=== PATIENT | male | born 1960 | race Caucasian/White ===

== ENCOUNTER 2018-07-23 12:57 | Inpatient (IN) | payer OTHER, SELFPAY ==
[~2018-07-23 12:57] MED LIST: Iopamidol 370 76% 100 ML VIAL ONE
[2018-07-23 13:42] LABS: #Basophils 0.1 thou/uL (0.0-0.2); #Eosinphils 0.7 thou/uL (0.0-0.7); #Lymphocytes 3.3 thou/uL (1.20-3.40); %Basophils 0.6 % (0.0-1.0); %Eosinophils 4.8 % (0.0-10.0); %Lymphocytes 23.6 % (21.0-51.0); %Monocytes 7.2 % (0.0-10.0); %Neutrophils 63.8 % (42.0-75.0); Hemoglobin 14.4 g/dL (14.0-18.0); Mean Corpuscular HGB CONC 31.9 g/dL (32.0-36.0); Mean Corpuscular Hemoglobin 28.2 pg (27.0-31.0); Mean Corpuscular Volume 88.5 fL (78.0-98.0); Mean Platelet Volume 8.7 fL (7.4-10.4); Platelet Count 325 thou/uL (130-400); RBC Distribution Width 13.6 % (11.5-14.5); White Blood Cell (WBC) Count 14.1 thou/uL (4.8-10.8)
[2018-07-23 13:49] LABS: PTT 26.8 SEC (22.9-36.1)
[2018-07-23] MEDS ORDERED: Nitroglycerin 50 MG/250 ML BOT 250 ML ONE (13:54)
[2018-07-23] MEDS ORDERED: Heparin 10,000 UNITS/1 ML VIAL ONE (13:54)
[2018-07-23] MEDS ORDERED: Clopidogrel Bisulfate 300 MG TAB ONE (13:55)
[2018-07-23] MEDS ORDERED: Verapamil 5 MG/2 ML VIAL ONE (13:57)
[2018-07-23] MEDS ORDERED: Adenosine 6 MG/2 ML VIAL ONE (13:57)
[2018-07-23] MEDS ORDERED: Nitroglycerin 100MG/250ML BOT 250 ML ONE (13:58)
[2018-07-23 14:02] LABS: ALT (SGPT) 21 U/L (8-55); AST (SGOT) 20 U/L (5-34); Albumin 3.7 g/dL (3.5-5.0); Alkaline Phosphatase 57 U/L (40-150); Anion Gap 14 mmol/L (10-20); BUN (Urea Nitrogen) 10 mg/dL (8.9-20.6); Bilirubin, Total 0.5 mg/dL (0.2-1.2); Calc. Creatinine Clearance 0 mL/min (70-130); Calcium 8.7 mg/dL (7.8-10.44); Carbon Dioxide 22 mmol/L (22-29); Chloride 106 mmol/L (98-107); Estimated GFR-MDRD Greater than 90; Globulin 2.6 g/dL (2.4-3.5); Glucose 142 mg/dL (70-105); Potassium 4.4 mmol/L (3.5-5.1); Protein, Total 6.3 g/dL (6.0-8.3); Sodium 138 mmol/L (136-145)
--- NOTE | 2018-07-23 14:04 | RAD ---
RADIOGRAPH CHEST 1 VIEW: HISTORY: A 28-year-old male status post intubation. ST elevation myocardial infarction. FINDINGS: There are no air space densities, pulmonary edema, pneumothorax, or cardiomegaly. The lateral costop hrenic angles are sharp. Endotracheal tube distal tip overlies the midthoracic trachea. Enteric tub e descends along the left of midline vertically, then turns sharply horizontally in the left upper qu adrant. [place] is probably at the gastric cardia. Defibrillation paddle overlies the right should er. IMPRESSION: 1. No acute cardiopulmonary findings. 2. Endotracheal tube. 3. Esophagogastric tube. michael Watson POS: [facility]
[2018-07-23] MEDS ORDERED: Aggrastat 12.5 MG/250 ML 250 ML ONE (14:28)
[2018-07-23] MEDS ORDERED: Fentanyl 100 MCG/2 ML VIAL ONE (15:05)
[2018-07-23] MEDS ORDERED: Propofol 1,000 MG/100 ML VIAL IV ONE (15:16)
[2018-07-23] MEDS ORDERED: Lorazepam 2 MG/ML VIAL ONE (15:16)
[2018-07-23] MEDS ORDERED: Lorazepam 2 MG/ML VIAL SLOW IVP PRN (15:20)
[2018-07-23] MEDS ORDERED: fentaNYL Citrate/PF 2,000 MCG in Sodium Chloride 0.9% 60 ML IV SCH (15:20)
[2018-07-23] MEDS ORDERED: Morphine 2 MG/ML SYRINGE SLOW IVP PRN (15:20)
[2018-07-23] MEDS ORDERED: Propofol BOLUS 1,000 MG/100 ML VIAL IV PRN (15:20)
[2018-07-23] MEDS ORDERED: Fentanyl BOLUS 250 ML IVPB PRN (15:20)
[2018-07-23] MEDS ORDERED: DISCONTINUE PREVIOUS NARCOTIC PAIN MEDICATIONS AND BENZODIAZEPINES FS SCH (15:20)
[2018-07-23] MEDS ORDERED: Ventilator Sedation Protocol 1 EACH FS SCH (15:30)
[2018-07-23 16:03] VITALS: BMI 26.9
[2018-07-23] MEDS ORDERED: Aggrastat 12.5 MG/250 ML 250 ML IVPB SCH (16:30)
[2018-07-23] MEDS ORDERED: Sodium Chloride 0.9% 1,000 ML IV SCH (17:15)
[2018-07-23 18:30] LABS: Actual Bicarbonate (HCO3a) 27.9 mEq/L (22-28); Base Excess (BEa) 0.9 mEq/L (-2.0 to +3.0); CO2 Tension 54.3 mmHg (35.0-45.0); Calcium, Ionized 1.14 mmol/L (1.12-1.30); Carboxyhemoglobin (COHb) 2.7 gm% (0.0-3.0); Hemoglobin (Hb) 13.4 g/dL (14.0-18.0); O2 Tension (PaO2) 99.5 mmHg (80.0-100.0); Potassium - ABG Lab 4.03 mmol/L (3.70-5.30); pH, Arterial 7.33 (7.35-7.45)
[2018-07-23 18:31] LABS: ALV-art Gradient 117.825 (0-20); Puncture Site ALINE
[2018-07-23] MEDS: Propofol 1,000 MG/100 ML VIAL IV PRN ×2 (18:38→22:03)
[2018-07-23] MEDS: Sodium Chloride 0.9% 1,000 ML IV SCH (18:40)
[2018-07-23 21:18] LABS: Hemoglobin 13.7 g/dL (14.0-18.0)
[2018-07-23 21:59] LABS: Platelet Count 291 thou/uL (130-400)
[2018-07-23] MEDS: Atorvastatin Calcium 40 MG TAB PO SCH (21:59)
--- NOTE | 2018-07-23 22:12 | CON ---
DATE OF CONSULTATION: HISTORY OF PRESENT ILLNESS: Hernandez Rebolledo is an elderly gentleman, who apparently came to the ER after he had ongoing chest pain. Dr. Brady, Cardiology, was notified. Intubated electively. Taken to the lab technician. He had two stents placed in the right coronary. His EKG showed ST-segment elevation, I, II, and aVL. At this stage, intubated, unable to get additional information. There are no family members apparently, already knows that he was bradycardic in the ER and the pacemaker inserted. He was appropriately responding. Did not have any anoxic injury. PHYSICAL EXAMINATION: GENERAL: ICU, on the vent. VITAL SIGNS: His pulse 108, sats are 99%, blood pressure 180/80. CHEST: Decreased breath sounds. No wheezing. CARDIAC: Normal S1 and S2 no gallops. ABDOMEN: No masses. IMAGING STUDIES: Initial chest x-ray was clear. LABORATORY STUDIES: White count 14,000. Chemistry was unremarkable. Troponin was normal. IMPRESSION: Acute anterior ischemia with right coronary stent; respiratory failure, likely intubated. PLAN: We are trying to wait for any family members to arrive. Pulmonary is going to manage vent, wean when stable. Otherwise, supportive care. Await additional information as noted. 30 minutes critical care time. Job ID: [id number]
[2018-07-24] MEDS: Propofol 1,000 MG/100 ML VIAL IV PRN ×2 (02:41→05:47)
[2018-07-24 03:12] LABS: #Eosinphils 0.2 thou/uL (0.0-0.7); #Lymphocytes 1.7 thou/uL (1.20-3.40); #Monocytes 0.8 thou/uL (0.11-0.59); #Neutrophils 12.5 thou/uL (1.40-6.50); %Basophils 0.3 % (0.0-1.0); %Lymphocytes 11.4 % (21.0-51.0); %Monocytes 5.5 % (0.0-10.0); %Neutrophils 81.8 % (42.0-75.0); Hemoglobin 13.8 g/dL (14.0-18.0); Mean Corpuscular HGB CONC 31.6 g/dL (32.0-36.0); Mean Corpuscular Volume 88.8 fL (78.0-98.0); Mean Platelet Volume 7.9 fL (7.4-10.4); Platelet Count 291 thou/uL (130-400); RBC Distribution Width 13.3 % (11.5-14.5); Red Blood Cell (RBC) Count 4.91 mill/uL (4.70-6.10); White Blood Cell (WBC) Count 15.3 thou/uL (4.8-10.8)
[2018-07-24 03:43] LABS: ALT (SGPT) 38 U/L (8-55); AST (SGOT) 158 U/L (5-34); Albumin 3.3 g/dL (3.5-5.0); Alkaline Phosphatase 56 U/L (40-150); Anion Gap 10 mmol/L (10-20); BUN (Urea Nitrogen) 10 mg/dL (8.4-25.7); Bilirubin, Total 0.7 mg/dL (0.2-1.2); Calc. Creatinine Clearance 121 mL/min (70-130); Calcium 8.6 mg/dL (7.8-10.44); Carbon Dioxide 34 mmol/L (22-29); Chloride 101 mmol/L (98-107); Estimated GFR-MDRD Greater than 90; Globulin 2.5 g/dL (2.4-3.5); Glucose 110 mg/dL (70-105); Potassium 3.3 mmol/L (3.5-5.1); Protein, Total 5.8 g/dL (6.0-8.3); Sodium 142 mmol/L (136-145)
--- NOTE | 2018-07-24 05:46 | PDOC.CTH ---
Cardiology Progress Note - Subjective Extubated. No complaints. States he used meth 1 month ago - Objective Vital Signs Temp Resp Pulse Ox 07/24/18 04:00 16 07/24/18 03:00 99.0 F 07/24/18 02:00 16 07/23/18 23:00 99.4 F 07/23/18 22:00 18 07/23/18 20:00 18 98 07/23/18 19:00 98.4 F 07/23/18 17:51 19 Weight 198 lb 6.656 oz 07/22/18 07/23/18 07/24/18 05:59 06:59 06:59 Intake Total 378 Output Total 2985 Balance -2607 - Physical Examination General/Neuro: NAD Neck: carotid US brisk, no JVD present Lungs: CTA, unlabored respirations Heart: PMI normal, RRR Abdomen: NT/ND, soft Extremities: + femoral B - Labs Result Diagrams: 07/24/18 05:53 07/24/18 03:00 Troponin/CKMB Troponin I Less than 0.010 ng/mL (< 0.028) 07/23/18 13:31 - Assessment/Plan INferior HI (Type I) Pt extubated. Doing well Continue aggrastat for total of 18 hours On plavix, ASA Check UDS. Pt with thrombosis of stent (rare) and has been seen with meth users. Add BB when BP more stable Remove pacer
[2018-07-24] MEDS: Sodium Chloride 0.9% 1,000 ML IV SCH (05:47)
[2018-07-24 06:03] LABS: Hemoglobin 13.4 g/dL (14.0-18.0); Platelet Count 288 thou/uL (130-400)
--- NOTE | 2018-07-24 06:23 | CON ---
DATE OF CONSULTATION: 07/23/2018 CHIEF COMPLAINT: Myocardial infarction. HISTORY OF PRESENT ILLNESS: Mr. Rebolledo is a 58-year-old gentleman with limited history. I gathered the information from the emergency room. No family is available. Mr. Rebolledo had an episode of chest pain just prior to work. EMS was summoned. He was found to have ST-segment elevation. Life flight was summoned. In route, the patient developed significant bradycardia requiring intermittent transcutaneous pacing. He also had mental status changes. He was seen by the emergency room, where he underwent urgent intubation due to mental status changes. PAST MEDICAL HISTORY: Unknown. ALLERGIES: UNKNOWN. MEDICATIONS: Unknown. REVIEW OF SYSTEMS: Unobtainable. He is currently intubated. PHYSICAL EXAMINATION: GENERAL: He is currently intubated and sedated. The patient is a pleasant male, who is in no acute distress. The patient appears their stated age. VITAL SIGNS: Blood pressure 130/70, pulse 60, and respirations 20. NEUROLOGIC: The patient is alert and oriented x3 with no focal neurologic deficits. HEENT: Sclerae without icterus. Mouth has moist mucous membranes with normal pallor. NECK: No JVD. Carotid upstroke brisk. No bruits bilaterally. LUNGS: Clear to auscultation with unlabored respirations. BACK: No scoliosis or kyphosis. CARDIAC: Regular rate and rhythm with normal S1 and S2. No S3 or S4 noted. No significant rubs, murmurs, thrills, or gallops noted throughout the precordium. PMI is not displaced. There is no parasternal heave. ABDOMEN: Soft, nontender, nondistended. No peritoneal signs present. No hepatosplenomegaly. No abnormal striae. EXTREMITIES: 2+ femoral and 2+ dorsalis pedis pulses. No cyanosis, clubbing, or edema. SKIN: No gross abnormalities. DIAGNOSTIC STUDIES: EKG shows marked ST-segment elevation noted anteriorly. PERTINENT LABORATORY DATA: White blood cell count 14.1, hemoglobin 14, creatinine 0.84, and glucose 110. AST 142. IMPRESSION: 1. Acute myocardial infarction. 2. Mental status changes. 3. Transcutaneous pacing. RECOMMENDATIONS: Mr. Rebolledo was intubated while in the emergency room due to mental status changes. He was brought urgently for coronary angiography. Family is currently not available. This was felt to be informed consent. The patient will need transvenous pacing prior to proceeding with angio given transcutaneous pacing recently and likely right coronary artery involvement. Further recommendations pending the above. Job ID: [id number]
[2018-07-24 07:26] LABS: Actual Bicarbonate (HCO3a) 35.4 mEq/L (22-28); Base Excess (BEa) 10.2 mEq/L (-2.0 to +3.0); CO2 Tension 49.2 mmHg (35.0-45.0); Calcium, Ionized 1.07 mmol/L (1.12-1.30); Carboxyhemoglobin (COHb) 0.6 gm% (0.0-3.0); Hemoglobin (Hb) 13.8 g/dL (14.0-18.0); O2 Tension (PaO2) 95.7 mmHg (80.0-100.0); Potassium - ABG Lab 3.13 mmol/L (3.70-5.30); pH, Arterial 7.48 (7.35-7.45)
[2018-07-24 08:27] LABS: Puncture Site ALINE
--- NOTE | 2018-07-24 08:54 | RAD ---
AP CHEST: INDICATION: CCU followup. Dyspnea. COMPARISON: 07/23/2018. FINDINGS: ET tube and NG tube remain in place. The lungs appear clear and well aerated. No acute process or i nterval change noted. POS: [facility]
[2018-07-24] MEDS: Aspirin Chewable 81 MG TAB PO SCH (09:09)
[2018-07-24] MEDS: Clopidogrel Bisulfate 75 MG TAB PO SCH (09:09)
[2018-07-24] MEDS ORDERED: DC Sedation Protocol FS ONE (09:15)
--- NOTE | 2018-07-24 10:09 | PRG ---
DATE OF SERVICE: 07/24/2018 SUBJECTIVE: This morning, his daughter from out of town is over here. She tells me that the patient works as a . He is a line welder. He is actually from [place], [place]. He saw a doctor in [place]. He has taken Tessalon Perles. He is smoking, but apparently, he has had no other cardiac issues that she is aware of. This morning, he is intubated, sedated on Diprivan. OBJECTIVE: VITAL SIGNS: Blood pressure , saturations are 90%, respiratory rate 18, and pulse 80. CHEST: Decreased breath sounds. No wheezing. CARDIAC: Normal S1 and S2. No gallops. ABDOMEN: No masses. LABORATORY DATA: White count 15,000 and H and H unremarkable. Lytes are normal. A pO2 is 95, pCO2 is 49, pH 7.48. His lytes are normal. IMPRESSION: 1. Status post emergency cardiac cath for anterior myocardial infarction with 2 stents. 2. Chronic obstructive pulmonary disease and bronchitis. PLAN: Wean and extubate. Started neb treatments, steroids, and empiric antibiotics. One-half hour of critical care time. Job ID: [id number]
[2018-07-24 12:08] LABS: Amphetamine Not Detected (NotDetected); Barbiturates Screen Not Detected (NotDetected); Benzodiazepine Screen Detected (NotDetected); Cocaine Metabolite Screen Not Detected (NotDetected); Medtox Control Line Valid? VALID (VALID); Medtox Reader # READER 4; Methadone Not Detected (NotDetected); Methamphetamine Detected (NotDetected); Opiate Screen Not Detected (NotDetected); Oxycodone Screen Not Detected (NotDetected); Phencyclidine (PCP) Not Detected (NotDetected); THC/Cannabinoid Screen Not Detected (NotDetected); Tricyclic Screen Not Detected (NotDetected)
[2018-07-24] MEDS: Doxycycline 100 MG CAP PO SCH (20:00)
[2018-07-24] MEDS: methylPREDNISolone Sod Succ/PF 125 MG/2 ML VIAL IVP SCH (20:00)
[2018-07-24] MEDS: Atorvastatin Calcium 40 MG TAB PO SCH (20:00)
--- NOTE | 2018-07-24 20:32 | EKG ---
Test Reason : Blood Pressure : / mmHG Vent. Rate : 082 BPM Atrial Rate : 082 BPM P-R Int : 128 ms QRS Dur : 096 ms QT Int : 392 ms P-R-T Axes : 081 049 019 degrees QTc Int : 457 ms Normal sinus rhythm Inferior infarct , age undetermined Abnormal ECG When compared with ECG of 23-JUL-2018 13:25, (Unconfirmed) Vent. rate has increased BY 38 BPM Inferior infarct is now Present ST no longer elevated in Inferior leads ST less depressed in Anterior leads Nonspecific T wave abnormality now evident in Inferior leads QT has lengthened Confirmed by DR. Kevin TILLMAN ([id number]) on 07/24/2018 8:31:35 PM Referred By: SOFI Confirmed By:DR. Kevin TILLMAN
[2018-07-25 05:49] LABS: #Lymphocytes 0.9 thou/uL (1.20-3.40); #Monocytes 0.2 thou/uL (0.11-0.59); #Neutrophils 9.2 thou/uL (1.40-6.50); %Eosinophils 0.2 % (0.0-10.0); %Lymphocytes 8.7 % (21.0-51.0); %Neutrophils 89.2 % (42.0-75.0); Hemoglobin 12.7 g/dL (14.0-18.0); Mean Corpuscular HGB CONC 30.5 g/dL (32.0-36.0); Mean Corpuscular Hemoglobin 26.9 pg (27.0-31.0); Mean Corpuscular Volume 88.2 fL (78.0-98.0); Mean Platelet Volume 8.5 fL (7.4-10.4); Platelet Count 265 thou/uL (130-400); RBC Distribution Width 13.1 % (11.5-14.5); Red Blood Cell (RBC) Count 4.73 mill/uL (4.70-6.10); White Blood Cell (WBC) Count 10.3 thou/uL (4.8-10.8)
[2018-07-25 06:06] LABS: Anion Gap 11 mmol/L (10-20); BUN (Urea Nitrogen) 10 mg/dL (8.4-25.7); Calc. Creatinine Clearance 111 mL/min (70-130); Calcium 8.6 mg/dL (7.8-10.44); Carbon Dioxide 28 mmol/L (22-29); Chloride 100 mmol/L (98-107); Estimated GFR-MDRD 85; Glucose 223 mg/dL (70-105); Potassium 3.2 mmol/L (3.5-5.1); Sodium 136 mmol/L (136-145)
[2018-07-25] MEDS: Aspirin Chewable 81 MG TAB PO SCH (08:41)
[2018-07-25] MEDS: Clopidogrel Bisulfate 75 MG TAB PO SCH (08:42)
[2018-07-25] MEDS: methylPREDNISolone Sod Succ/PF 125 MG/2 ML VIAL IVP SCH (08:42)
--- NOTE | 2018-07-25 09:11 | RAD ---
CHEST 1 VIEW: Date: 07/25/18 HISTORY: Respiratory insufficiency. COMPARISON: 07/24/18. FINDINGS: NG tube and endotracheal tubes have been removed. Monitor leads overlie the chest. Old granulomatous disease and mild stable increased markings without confluent pneumonia, overt edema, or other acute p rocess. IMPRESSION: Removal of the NG tube and endotracheal tubes. Stable chronic changes. No significant new process. POS: [facility]
--- NOTE | 2018-07-25 09:42 | PRG ---
DATE OF SERVICE: 07/25/2018 SUBJECTIVE: Hernandez Rebolledo, this morning, is awake, alert, and responsive. He is extubated yesterday except for slight cough. He is asymptomatic. OBJECTIVE: VITAL SIGNS: Sats are 96% on room air, pulse 113, and blood pressure 95/59. CHEST: Decreased breath sounds. No wheezing. CARDIAC: Normal S1 and S2. No gallops. ABDOMEN: No masses. LABORATORY DATA: Lytes are normal. White count unremarkable. Drug screen shows meth and benzos. IMPRESSION: 1. Coronary artery disease, status post stent. 2. Chronic obstructive pulmonary disease. 3. Tobacco abuse. 4. Drug abuse. PLAN: Transferred out of the ICU. Continue empiric antibiotics. We will follow. Job ID: [id number]
[2018-07-25] MEDS: Doxycycline 100 MG CAP PO SCH (09:51)
[2018-07-25] MEDS ORDERED: Potassium Chloride 20 MEQ TAB PO SCH (15:00)
--- NOTE | 2018-07-25 15:00 | PDOC.CTH ---
Cardiology Progress Note - Subjective The pt seen and examined. No overnight events. No cardiac complaints. He had intermittent dizziness while he walked around nursing station. He did not have other cardiac complaints during walking. - Objective Vital Signs Temp Pulse Resp Pulse Ox 07/25/18 12:51 91 16 99 07/25/18 12:00 97.9 F 07/25/18 07:18 96 07/25/18 07:11 95 07/25/18 07:08 113 H 18 95 07/25/18 07:00 97.3 F L 07/25/18 04:00 97.6 F Weight 198 lb 6.656 oz 07/24/18 07/25/18 07/26/18 06:59 06:59 06:59 Intake Total 2069 3589.6 840 Output Total 3130 3075 1185 Balance -1061 514.6 -345 - Physical Examination General/Neuro: alert & oriented x3 Neck: no JVD present Lungs: CTA Heart: RRR Abdomen: soft Extremities: other: (No edema) - Telemetry Telemetry Rhythm: SR - Labs Result Diagrams: 07/25/18 05:05 07/25/18 05:05 Troponin/CKMB Troponin I Less than 0.010 ng/mL (< 0.028) 07/23/18 13:31 - Assessment/Plan 1. INferior UT (Type I) with S/p stent x2 in RCA on 07/23/[address] Canela - sivan ; on ASA 81mg qd, Plavix 75mg qd, and Lipitor. Not on BBlocker or JAIME/ARB due to hypotensive and complains of intermittent dizziness 2. Meth user - Illicit drug cessation education given to the pt. 3. Current smoker - smoking cessation education given to the pt. 4. Hypokalemia - 40mEq x1 PO today. MAR reviewed * From Cardiac standpoint, the pt is stable to d/c home. The pt will F/u with Dr Canela's office within 2wks if he cont staying the [facility] (he is from [place], [place]) * Written prescription: ASA 81mg qd, Plavix 75mg qd, Lipitor 40mg qd, Doxycycline 100mg BID until 07/31/2018 ([address] Coleman), and NTG 0.4mg PRN * Not on BBlocker or JAIME/ARB due to hypotensitve for now. * Instruction of light duty at work until the pt seen Dr Canela's office within 2 wks given to the pt. Review of Systems - Review of Systems Constitutional: reports: see HPI EENTM: reports: no symptoms reported Respiratory: reports: no symptoms reported Cardiac (ROS): reports: no symptoms reported ABD/GI: reports: no symptoms reported : reports: no symptoms reported Musculoskeletal: reports: no symptoms reported
[2018-07-25 15:10] VITALS: TEMP 98.1
[2018-07-25 16:20] VITALS: BP 115/74
== END 2018-07-25 16:15 | disposition home or self-care (01) | DRG 248 ==
LOC: ERS 12:57 → EDBD 15:06 → CCU 15:06
PROVIDERS: ADMIT Internal Medicine Cardiovascular Disease; ATTEND Internal Medicine Cardiovascular Disease
PROC: 4A023N7 Measurement of Cardiac Sampling and Pressure, Left Heart, Percutaneous Approach (ICD-10-PCS; principal; 2018-07-23)
PROC: 02703DZ Dilation of Coronary Artery, One Artery with Intraluminal Device, Percutaneous Approach (ICD-10-PCS; 2018-07-23)
PROC: B2111ZZ Fluoroscopy of Multiple Coronary Arteries using Low Osmolar Contrast (ICD-10-PCS; 2018-07-23)
PROC: B2151ZZ Fluoroscopy of Left Heart using Low Osmolar Contrast (ICD-10-PCS; 2018-07-23)
PROC: 0BH17EZ Insertion of Endotracheal Airway into Trachea, Via Natural or Artificial Opening (ICD-10-PCS; 2018-07-23)
DX: I21.19 ST elevation (STEMI) myocardial infarction involving other coronary artery of inferior wall (principal); J96.90 Respiratory failure, unspecified, unspecified whether with hypoxia or hypercapnia; E87.6 Hypokalemia; F17.210 Nicotine dependence, cigarettes, uncomplicated; I25.10 Atherosclerotic heart disease of native coronary artery without angina pectoris; J44.9 Chronic obstructive pulmonary disease, unspecified; F11.10 Opioid abuse, uncomplicated
CPT/HCPCS: 31500; 33210; 36415; 51702; 71045; 80048; 80053; 80306; 82805; 84484; 85025; 85347; 85610; 85730; 86850; 86900; 86901; 92928; 92973; 92978; 93005; 93010; 93306; 93458; 93798; 94002; 94003; 94640; C1725; C1753; C1757; C1769; C1876; C1887; J0153; J1644; J2060; J2704; J2930; J3010; J3246; J7620; Q9967